=== PATIENT | female | born 1985 | race Caucasian/White ===

== ENCOUNTER 2017-11-16 15:35 | Emergency (ER) | payer OTHER ==
[2017-11-16 16:40] VITALS: BP 125/84
[2017-11-16] MEDS ORDERED: Albuterol 2.5 MG/3 ML NEB.SOL* (0.083%) INH ONE (16:46)
--- NOTE | 2017-11-16 16:47 | UC ---
UC General HPI - HPI Summary HPI Summary: pt is c/o 3 week hx cough with congestion. the past 5 days, raising brown sputum. + wheezing. no hx asthma - History of Current Complaint Hx Obtained From: Patient Hx Last Menstrual Period: 10/17/17 Onset/Duration: Gradual Onset Timing: Constant Pain Intensity: 0 Aggravating: nothing Alleviating: nothing Associated Signs & Symptoms: Positive: Cough, Wheezing. Negative: Fever, SOB <Promise Morataya - Last Filed: 11/16/17 17:45> <Tiffany Burger - Last Filed: 11/16/17 18:42> - History of Current Complaint Chief Complaint: UCRespiratory Stated Complaint: COUGH Time Seen by Provider: 11/16/17 16:40 - Allergy/Home Medications Allergies/Adverse Reactions: Allergies Allergy/AdvReac Type Severity Reaction Status Date / Time No Known Allergies Allergy Verified 11/16/17 16:37 Home Medications: Home Medications Cyclobenzaprine TAB* [Flexeril 10 MG TAB*] 10 mg PO BID PRN 11/16/17 [History Confirmed 11/16/17] PMH/Surg Hx/FS Hx/Imm Hx Previously Healthy: Yes - Surgical History Surgical History: Yes Surgery Procedure, Year, and Place: [facility], 2013, [place] - Family History Known Family History: Positive: Hypertension - Social History Occupation: Employed Full-time Lives: With Family Alcohol Use: Occasionally Substance Use Type: None Smoking Status (MU): Light Every Day Tobacco Smoker Type: Cigarettes Amount Used/How Often: ~1/4 PPD Length of Time of Smoking/Using Tobacco: 15 Years - Immunization History Most Recent Influenza Vaccination: Not the Season Vaccination Up to Date: Yes <Promise Morataya - Last Filed: 11/16/17 17:45> Review of Systems Constitutional: Negative Skin: Negative Eyes: Negative ENT: Negative Respiratory: Shortness Of Breath, Cough Cardiovascular: Negative Gastrointestinal: Negative Genitourinary: Negative Motor: Negative Neurovascular: Negative Musculoskeletal: Negative Neurological: Negative Psychological: Negative Is Patient Immunocompromised?: No All Other Systems Reviewed And Are Negative: Yes <Promise Morataya - Last Filed: 11/16/17 17:45> Physical Exam Triage Information Reviewed: Yes Appearance: Well-Appearing Vital Signs: Initial Vital Signs Temp 98 F 11/16/17 16:35 Pulse 105 11/16/17 16:35 Resp 16 11/16/17 16:35 BP 125/84 11/16/17 16:35 Pulse Ox 100 11/16/17 16:35 Vital Signs Reviewed: Yes Eyes: Positive: Conjunctiva Clear ENT: Positive: Pharynx normal, TMs normal. Negative: Nasal congestion, Nasal drainage Respiratory: Positive: Decreased breath sounds, Rhonchi - both bases, cleared with congested cough, Wheezing - occasional Cardiovascular: Positive: RRR, No Murmur Abdomen Description: Positive: Nontender, No Organomegaly, Soft Bowel Sounds: Positive: Present Musculoskeletal: Positive: ROM Intact. Negative: No Edema Neurological: Positive: Alert Psychological: Positive: Age Appropriate Behavior Skin Exam: Normal <Promise Morataya - Last Filed: 11/16/17 17:45> Vital Signs: Initial Vital Signs Temp 98 F 11/16/17 16:35 Pulse 105 11/16/17 16:35 Resp 16 11/16/17 16:35 BP 125/84 11/16/17 16:35 Pulse Ox 100 11/16/17 16:35 <Tiffany Burger - Last Filed: 11/16/17 18:42> Diagnostics - Radiology No standard instances Xray Interpretation: No Acute Changes Radiology Interpretation Completed By: Radiologist <Promise Morataya - Last Filed: 11/16/17 17:45> Re-Evaluation - Re-Evaluation Second Eval Re-Evaluation Time: 17:40 Change: Improved - lungs clear and raised sputum after. good aeration <Promise Morataya - Last Filed: 11/16/17 17:45> Course/Dx - Course Course Of Treatment: cxr unremarkable. pt ill for several days thus will cover for presumtive bacterial infection - Differential Dx - Multi-Symptom Provider Diagnoses: Cough. bronchospasm <Promise Morataya - Last Filed: 11/16/17 17:45> Discharge - Sign-Out/Discharge Documenting (check all that apply): Discharge - Billing Disposition and Condition Condition: STABLE Disposition: HOME <Promise Morataya - Last Filed: 11/16/17 17:45> - Billing Disposition and Condition Condition: STABLE Disposition: HOME <Tiffany Burger - Last Filed: 11/16/17 18:42> - Discharge Plan Condition: Stable Disposition: HOME Prescriptions: Albuterol HFA INHALER* [Ventolin HFA Inhaler*] 2 puff INH Q6H #1 mdi DOXYcycline CAP(*) [DOXYcycline 100MG CAP(*)] 100 mg PO BID #20 cap Patient Education Materials: Bronchospasm (ED), Acute Cough (ED) Referrals: Jinny Ordoñez MD [Primary Care Provider] - 7 Days Attestation Statement User Type: Provider - I was available for consult. This patient was seen by the [facility]. The patient was not presented to, seen by, or examined by me. -Rosalee <Tiffany Burger - Last Filed: 11/16/17 18:42>
--- NOTE | 2017-11-16 17:37 | RAD ---
INDICATION: Cough and wheezing. COMPARISON: There are no prior studies available for comparison. TECHNIQUE: Dual-energy PA and lateral views of the chest were obtained. FINDINGS: The heart is within normal limits in size. Mediastinal and hilar contours appear within normal limits. The lungs are clear. No pleural effusion is present. There is a mild dorsal lumbar scoliosis convex toward the right in the dorsal region and toward the left at the dorsal lumbar junction. IMPRESSION: NO EVIDENCE FOR ACTIVE CARDIOPULMONARY DISEASE.
== END 2017-11-16 17:53 | disposition home or self-care (01) ==
LOC: UCCORT 15:35
DX: J98.01 Acute bronchospasm (principal); R05 Cough; F17.210 Nicotine dependence, cigarettes, uncomplicated
CPT/HCPCS: 71046; 99212; G0463